=== PATIENT | male | born 1985 | race Caucasian/White ===

== ENCOUNTER 2018-07-12 10:23 | Emergency (ER) | payer BC ==
--- NOTE | 2018-07-12 10:35 | Emergency Department Record ---
History of Present Illness - General Chief Complaint: Laceration(s) Stated Complaint: LT THUMB TIP CUT OFF Time Seen by Provider: 07/12/18 10:29 Source: Patient Mode of Arrival: Ambulatory Limitations: No limitations - History of Present Illness Initial Commments: The patient cut the tip of the L thumb off with an ax just prior to arrival. His Td is UTD. Onset/Timin -: Minutes(s) Place: Outdoors Context: Accidental, Sharp object use Associated Symptoms: None Treatments Prior to Arrival: Bandage - Related Data Hx Tetanus Toxoid Vaccination: Yes Year of Tetanus Vaccination: 2015 Home Medications Medication Instructions Recorded Confirmed Last Taken Omeprazole 40 mg PO DAILY 07/12/18 07/12/18 Unknown Previous Rx's Medication Instructions Recorded Cephalexin [Keflex] 500 mg PO QID #28 cap 07/12/18 Allergies Allergy/AdvReac Type Severity Reaction Status Date / Time sulfamethoxazole Allergy hives Unverified 06/03/18 07:34 [From Bactrim] trimethoprim [From Bactrim] Allergy hives Unverified 06/03/18 07:34 Travel Screening - Travel/Exposure Within Last 30 Days Have you traveled within the last 30 days?: No Review of Systems Constitutional: Denies: Chills, Fever Past Medical History - SOCIAL HISTORY Smoking Status: Current every day smoker Alcohol Use: Rare Drug Use: None - RESPIRATORY Hx Respiratory Disorders: No - CARDIOVASCULAR Hx Cardio Disorders: No - NEURO Hx Neuro Disorders: No - GI Hx GI Disorders: No - Hx Genitourinary Disorders: No - ENDOCRINE Hx Endocrine Disorders: No - MUSCULOSKELETAL Hx Musculoskeletal Disorders: No - PSYCH Hx Psych Problems: No - HEMATOLOGY/ONCOLOGY Hx Hematology/Oncology Disorders: No Family Medical History Any Significant Family History?: No Physical Exam - General General Appearance: Alert, Cooperative, No acute distress - Head Head exam: Atraumatic - Eye Eye exam: Normal appearance - Extremities Extremities exam: Full ROM. negative: Normal inspection (Ther distal 1/2 cm of the L thumb was obliquely cut off. There is a lac thru the distal nail bed.) Image of Finger Tip: 1 - Finger tip avulsion. Course Vital Signs 07/12/18 10:24 Temperature 97.5 F L Pulse Rate 112 H Respiratory 16 Rate Blood Pressure 154/83 Pulse Ox 98 - Reevaluation(s) Reevaluation #1: Procedure note: The L thumb was anesth. with 3 cc's Lido 1% and Sensoricaine .25 % in a 50:50 mixture. The distal nail was removed and the tip was sutured in place with 4 4.0 nylon sutures. The proximal nail was not removed due to the wishes of the patient. There was very good approximation of the nail bed and finger tip. The distal tip was very well supplied with blood and had normal cap refill. 07/12/18 11:32 Medical Decision Making - Data Complexity MDM Data: X-Ray Ordered and/or Reviewed - Radiology Data Radiology results: Report reviewed (L thumb: Neg for fx.) Disposition Disposition: Discharge Clinical Impression: Amputation of finger tip Qualifiers: Encounter type: initial encounter Qualified Code(s): S68.129A - Partial traumatic metacarpophalangeal amputation of unspecified finger, initial encounter Disposition: Home, Self-Care Condition: (2) Stable Instructions: Laceration (ED) Additional Instructions: Please keep dry and return to the ER in 2 days for a wound recheck. Take the Keflex as directed and use Tylenol or Motrin for pain. Keep the thumb clean and dry. Prescriptions: Cephalexin [Keflex] 500 mg PO QID #28 cap Forms: Patient Portal Access Time of Disposition: 11:36 Quality - Quality Measures Quality Measures: N/A - Blood Pressure Screening View Details: Yes Does Patient Have Any of the Following: No Blood Pressure Classification: Pre-Hypertensive BP Reading Systolic Measurement: 154 Diastolic Measurement: 83 Screening for High Blood Pressure: < Pre-Hypertensive BP, F/U Documented > [ G8950] Pre-Hypertensive Follow-up Interventions: Referral to alternative/primary care provider.
[2018-07-12] MEDS ORDERED: BUPIVACAINE 0.25% PF (2.5MG/ML) 10ML VIAL IM ONE (10:47)
[2018-07-12] MEDS ORDERED: CEPHALEXIN 500 MG CAPSULE PO STA (11:31)
--- NOTE | 2018-07-14 10:22 | RADIOLOGY REPORT ---
EXAM: LEFT THUMB HISTORY: CUTTING WOOD WITH AX TODAY AND LACERATED DISTAL TIP OF LEFT THUMB. TECHNIQUE: Three views of the left thumb were obtained. Comparison: None. Encounter: Initial. FINDINGS: There is deformity of the soft tissues in the region of the thumbnail consistent with a laceration in this region. The underlying distal phalanx appears intact with no definite fracture or dislocation of the left thumb identified. IMPRESSION: 1. SOFT TISSUE DEFORMITY DISTALLY. 2. NO DEFINITE FRACTURE OF THE LEFT THUMB IDENTIFIED. JOB NUMBER: [id number] MTDD
== END 2018-07-12 11:57 | disposition home or self-care (01) ==
LOC: ER 10:23
DX: S68.022A Partial traumatic metacarpophalangeal amputation of left thumb, initial encounter (principal); W27.0XXA Contact with workbench tool, initial encounter; Y92.89 Other specified places as the place of occurrence of the external cause; F17.210 Nicotine dependence, cigarettes, uncomplicated
CPT/HCPCS: 11760; 99284

== ENCOUNTER 2018-07-14 20:19 | Emergency (ER) | payer BC ==
--- NOTE | 2018-07-14 20:30 | Emergency Department Record ---
History of Present Illness - General Chief Complaint: Wound, check Stated Complaint: WOUND RECHECK Time Seen by Provider: 07/14/18 20:26 Source: Patient Mode of arrival: Ambulatory Limitations: No limitations - History of Present Illness Initial Comments: The patient is here for a wound recheck. He cut the tip of his L thumb off 2 days ago. He did not get into the bone. Now he is here for a wound recheck. He states the thumb feels well and denies any problems. Complaint: Wound re-check Onset/Timin -: Days(s) Initial Visit For: Laceration Returns Today for: Wound recheck Symptoms Since Prior Visit: No new symptoms, Improved Associated Symptoms: None Treatments Prior to Arrival: Dressings - Related Data Previous Rx's Medication Instructions Recorded Cephalexin [Keflex] 500 mg PO QID #28 cap 07/12/18 Allergies Allergy/AdvReac Type Severity Reaction Status Date / Time sulfamethoxazole Allergy hives Verified 07/14/18 20:29 [From Bactrim] trimethoprim [From Bactrim] Allergy hives Verified 07/14/18 20:29 Travel Screening - Travel/Exposure Within Last 30 Days Have you traveled within the last 30 days?: No - Travel/Exposure Within Last Year Have you traveled outside the [place] in the last year?: No - Additonal Travel Details Have you been exposed to anyone with a communicable illness?: No - Travel Symptoms Symptom Screening: None Review of Systems Constitutional: Denies: Chills, Fever Past Medical History - SOCIAL HISTORY Smoking Status: Current every day smoker Alcohol Use: Rare Alcohol Use Comment: once a month Drug Use: None - RESPIRATORY Hx Respiratory Disorders: No - CARDIOVASCULAR Hx Cardio Disorders: No - NEURO Hx Neuro Disorders: No - GI Hx GI Disorders: No - Hx Genitourinary Disorders: No - ENDOCRINE Hx Endocrine Disorders: No - MUSCULOSKELETAL Hx Musculoskeletal Disorders: No - PSYCH Hx Psych Problems: No - HEMATOLOGY/ONCOLOGY Hx Hematology/Oncology Disorders: No Family Medical History Any Significant Family History?: No Physical Exam - General General Appearance: Alert, Cooperative, No acute distress - Head Head exam: Atraumatic, Normocephalic - Eye Eye exam: Normal appearance - Extremities Extremities exam: negative: Normal inspection (The L thumb tip appears very pink with normal sensation and capillar refill. It appear to be healing well.) Course Vital Signs 07/14/18 20:24 Temperature 97.4 F L Pulse Rate [ 97 H Pulse Ox Probe] Respiratory 16 Rate Blood Pressure 129/76 [Left Arm] Pulse Ox 100 - Reevaluation(s) Reevaluation #1: I did discuss the plan with the patient to keep abx ointment on during the day and open at night. He is to have the sutures removed in 8 days and to have a wound recheck in 3-4 days. 07/14/18 20:49 Disposition Disposition: Discharge Clinical Impression: Amputation of finger tip Qualifiers: Encounter type: subsequent encounter Qualified Code(s): S68.119D - Complete traumatic metacarpophalangeal amputation of unspecified finger, subsequent encounter Disposition: Home, Self-Care Condition: (2) Stable Instructions: Wound Healing and Your Diet (ED) Additional Instructions: Please keep antibiotic ointment on during the day and open at night. Have the sutures removed in 8 days. Please have a wound recheck in 3-4 days. Return to the ER for any problems. Forms: Patient Portal Access Time of Disposition: 20:51 Quality - Quality Measures Quality Measures: N/A - Blood Pressure Screening View Details: Yes Does Patient Have Any of the Following: No Blood Pressure Classification: Pre-Hypertensive BP Reading Systolic Measurement: 129 Diastolic Measurement: 76 Screening for High Blood Pressure: < Pre-Hypertensive BP, F/U Documented > [ G8950] Pre-Hypertensive Follow-up Interventions: Referral to alternative/primary care provider.
== END 2018-07-14 21:01 | disposition home or self-care (01) ==
LOC: ER 20:19
DX: S68.022D Partial traumatic metacarpophalangeal amputation of left thumb, subsequent encounter (principal); W27.0XXA Contact with workbench tool, initial encounter; Y92.89 Other specified places as the place of occurrence of the external cause; F17.210 Nicotine dependence, cigarettes, uncomplicated
CPT/HCPCS: 99282

== ENCOUNTER 2018-07-23 16:38 | Emergency (ER) | payer BC ==
--- NOTE | 2018-07-23 16:53 | Emergency Department Record ---
History of Present Illness - General Chief Complaint: Suture removal Stated Complaint: REMOVE STITCHES Time Seen by Provider: 07/23/18 16:41 Source: Patient Mode of arrival: Ambulatory Limitations: No limitations - History of Present Illness Initial Comments: The patient is here for suture removal. He denies any new problems. Complaint: Suture/staple removal Onset/Timin -: Days(s) Initial Visit For: Laceration Returns Today for: Staple/stitch removal Symptoms Since Prior Visit: No new symptoms Associated Symptoms: None - Related Data Previous Rx's Medication Instructions Recorded Cephalexin [Keflex] 500 mg PO QID #28 cap 07/12/18 Allergies Allergy/AdvReac Type Severity Reaction Status Date / Time sulfamethoxazole Allergy hives Unverified 07/15/18 07:11 [From Bactrim] trimethoprim [From Bactrim] Allergy hives Unverified 07/15/18 07:11 Travel Screening - Travel/Exposure Within Last 30 Days Have you traveled within the last 30 days?: No - Travel/Exposure Within Last Year Have you traveled outside the [place] in the last year?: No - Additonal Travel Details Have you been exposed to anyone with a communicable illness?: No Past Medical History - SOCIAL HISTORY Smoking Status: Current every day smoker Alcohol Use: None Drug Use: None - RESPIRATORY Hx Respiratory Disorders: No - CARDIOVASCULAR Hx Cardio Disorders: No - NEURO Hx Neuro Disorders: No - GI Hx GI Disorders: No - Hx Genitourinary Disorders: No - ENDOCRINE Hx Endocrine Disorders: No - MUSCULOSKELETAL Hx Musculoskeletal Disorders: No - PSYCH Hx Psych Problems: No - HEMATOLOGY/ONCOLOGY Hx Hematology/Oncology Disorders: No Family Medical History Any Significant Family History?: No Physical Exam - General General Appearance: Alert, Cooperative, No acute distress - Extremities Extremities exam: negative: Normal inspection (The thumb tip is healing but the very distal end is mildy ischemic. The sutures were removed without difficulty.) Course Vital Signs 07/23/18 16:40 Temperature 97.3 F L Pulse Rate 78 Respiratory 138 H Rate Blood Pressure 134/61 Pulse Ox 98 - Reevaluation(s) Reevaluation #1: I did discuss F/U with Dr. Easley due to a portion of the finger tip appearing very mildly ischemic. The patient new this was a possible complication. 07/23/18 16:54 Disposition Disposition: Discharge Clinical Impression: Encounter for removal of sutures Disposition: Home, Self-Care Condition: (2) Stable Instructions: Stitches Removal (ED) Additional Instructions: Please keep clean and please see Dr. Easley for recheck. Return to the ER for any worsening symptoms. Referrals: ARYAN EASLEY M.D. [MEDICAL DOCTOR] - Forms: Patient Portal Access Time of Disposition: 16:53 Quality - Quality Measures Quality Measures: N/A - Blood Pressure Screening View Details: Yes Does Patient Have Any of the Following: No Blood Pressure Classification: Pre-Hypertensive BP Reading Systolic Measurement: 134 Diastolic Measurement: 61 Screening for High Blood Pressure: < Pre-Hypertensive BP, F/U Documented > [ G8950] Pre-Hypertensive Follow-up Interventions: Referral to alternative/primary care provider.
== END 2018-07-23 17:00 | disposition home or self-care (01) ==
LOC: ER 16:38
DX: Z48.02 Encounter for removal of sutures (principal)